=== PATIENT | female | born 1935 | race Caucasian/White ===

== ENCOUNTER 2019-05-20 20:16 | Inpatient (IN) ==
[2019-05-20] MEDS ORDERED: Levalbuterol Neb 1.25 MG/3 ML IH ONE (20:46)
[2019-05-20] MEDS ORDERED: predniSONE 20 MG TABLET PO ONE (20:47)
[2019-05-20 21:04] LABS: Basophils % 0.2 %; Eosinophils % 0.1 %; Hematocrit 34.4 % (35.3-44.9); Immature Granulocytes % 0.6 % (0-4); Lymphocytes # 1.6 K/mcL (0.6-4.6); Lymphocytes % 12.6 %; Mean Corpuscular HGB Conc 34.9 g/dL (31.6-35.5); Mean Corpuscular Hemoglobin 32.3 pg (28.0-33.3); Mean Corpuscular Volume 92.5 fL (83.0-100.0); Mean Platelet Volume 10.4 fL (9.4-12.4); Monocytes # 0.9 K/mcL (0.0-1.3); Monocytes % 7.1 %; Neutrophils # 9.8 K/mcL (1.6-8.9); Platelet Count 167 K/mcL (140-400); Red Blood Count 3.72 M/mcL (3.82-4.97); Segmented Neutrophils % 79.4 %; White Blood Count 12.3 K/mcL (4.3-11.1)
[2019-05-20 21:18] LABS: Albumin 3.7 g/dL (3.5-5.7); Albumin/Globulin Ratio 1.2 (1.1-2.2); Calcium 8.9 mg/dL (8.6-10.3); Globulin 3.2 g/dL (2.4-3.5); Potassium 3.5 mEq/L (3.5-5.1); Total Protein 6.9 g/dL (6.4-8.9)
--- NOTE | 2019-05-20 21:26 | Emergency Department Note ---
Disposition Clinical Impression: Multifocal pneumonia Respiratory failure with hypoxia Qualifiers: Chronicity: acute Qualified Code(s): J96.01 - Acute respiratory failure with hypoxia COPD (chronic obstructive pulmonary disease) Qualifiers: COPD type: unspecified COPD Qualified Code(s): J44.9 - Chronic obstructive pulmonary disease, unspecified Disposition: Admitted As Inpatient Condition: Fair Time of Disposition: 22:21 URI/Sore Throat HPI - General Chief Complaint: ED Shortness of Breath/Dyspnea Stated Complaint: sob Time Seen by Provider: 05/20/19 20:22 Source: patient Limitations: no limitations Nursing Notes Reviewed: Yes Vital Signs Reviewed: Yes - History of Present Illness HPI Narrative: 83-year-old female presents for evaluation of shortness of breath and cough. Patient states that symptoms for 3 days. She denies any chest pain. She no rmally does not require use of oxygen. She does use a nebulizer at home but does not know the name of the medicine that she uses. She is a one pack per day smoker - Related Data Home Medications Medication Instructions Recorded Confirmed Atorvastatin [Lipitor] 40 mg PO HS 12/10/16 05/20/19 Aspirin 325 mg PO DAILY 04/10/18 05/20/19 Metoprolol [Lopressor] 50 mg PO DAILY 04/10/18 05/20/19 Allergies Allergy/AdvReac Type Severity Reaction Status Date / Time heparin Allergy See Verified 05/20/19 20:36 Comments morphine Allergy See Verified 05/20/19 20:36 Comments rabeprazole [From Aciphex] Allergy See Verified 05/20/19 20:36 Comments Sulfa (Sulfonamide Allergy See Verified 05/20/19 20:36 Antibiotics) Comments Review of Systems: Constitutional: [Negative for fever and chills.] HENT: [Negative for congestion.] Eyes: [Negative for discharge.] Respiratory: See history of present illness Cardiovascular: [Negative for chest pain.] Gastrointestinal: [Negative for nausea, vomiting, abdominal pain and diarrhea.] Endocrine: [Negative for excessive thirst,urination] Genitourinary: [Negative for dysuria and frequency.] Musculoskeletal: [Negative for myalgias and arthralgias.] Skin: [Negative for rash.] Neurological: [Negative for dizziness, localized weakness and headaches.] Psychiatric/Behavioral: [Negative for nervous/anxious.] All other systems reviewed and are negative. URI PMH - Past Medical History Medical history: Reports: arthritis, COPD, coronary artery disease, diabetes, hyperlipidemia, hypertension, myocardial infarction Psychiatric history: Reports: no psych history BANDOLEER PACKER history: Reports: no BANDOLEER PACKER history - Social History Smoking Status: Current every day smoker Alcohol use: Reports: none Drug use: Reports: none Physical Exam Constitutional: Patient is [alert], [healthy,and comfortable] and cooperative. HENT: Head: Normocephalic and atraumatic. Right Ear: External ear normal. Left Ear: External ear normal. Nose: Nose normal. Mouth/Throat: Oropharynx is clear and mucous membranes show [good hydration.] Eyes: Conjunctivae and EOM are normal. Pupils are equal, round, and reactive to light. Right eye exhibits [no] discharge. Left eye exhibits [no] discharge. Neck: Trachea is midline, normal range of motion and [phonation normal]. Neck supple. Cardiovascular: [Regular rhythm], S1 normal, S2 normal, normal heart sounds and intact distal pulses. Exam reveals no gallop and no friction rub. No murmur heard. [Capillary refill is brisk.] [Peripheral pulses are 2+] Pulmonary/Chest: Effort [normal] No stridor. [No] tachypnea. [No] respiratory distress. There are decreased breath sounds. A few faint wheezes and diffuse rhonchi. No rales. Abdominal: Soft. [Bowel sounds are normal]. There exhibits [no] distension and [no] mass. There is no hepatosplenomegaly. There is [no tenderness], [no] CVA tenderness. There is [no rigidity, no rebound, no guarding]. Musculoskeletal: Normal range of motion of uninvolved extremities. There exhibits [no edema]. [ ] Neurological: Patient is alert. Patient displays no atrophy and no tremor. Moves all 4 extremities equally without gross deficit. No cranial nerve deficit and exhibits normal muscle tone. Coordination normal grossly. Skin: Skin is warm and dry. No erythema. No rash noted. Psychiatric: Patient has a [normal mood and affect.] Course Course Narrative: [ ] Discussed diagnosis and further treatment plans with patient and son. Questions addressed. Patient was discussed with Dr. Lainez on-call and we will admit her for further management treatment related to hypoxia at rest Vital Signs Temperature 101.9 F H 05/20/19 20:37 Pulse Rate 110 05/20/19 20:37 Respiratory Rate 20 05/20/19 20:37 Blood Pressure 134/70 05/20/19 20:37 O2 Sat by Pulse Oximetry 94 05/20/19 20:37 Temperature 101.9 F H 05/20/19 20:37 Pulse Rate 91 05/20/19 22:57 Respiratory Rate 20 05/20/19 22:57 Blood Pressure 152/57 05/20/19 22:57 O2 Sat by Pulse Oximetry 93 05/20/19 22:57 Oxygen Delivery Oxygen Delivery Nasal Cannula Upper Respiratory Infection - MDM Narrative Medical decision making narrative: Initial differential diagnosis would include INFLUENZA, UPPER RESPIRATORY INFECTION, PHARYNIGITIS, BRONCHITIS,TONSILLITIS, MASTOIDITIS, PNEUMONIA, PERITONSILLAR ABSCESS, CROUP, EPIGLOTTITIS. - Lab Data Lab results reviewed: Yes I reviewed the patient's lab results. Result diagrams: 05/20/19 20:25 05/20/19 20:25 Lab Results 05/20/19 05/20/19 Range/Units 20:25 20:25 WBC 12.3 H (4.3-11.1) K/mcL RBC 3.72 L (3.82-4.97) M/mcL Hgb 12.0 (11.5-15.4) g/dL Hct 34.4 L (35.3-44.9) % MCV 92.5 (83.0-100.0) fL MCH 32.3 (28.0-33.3) pg MCHC 34.9 (31.6-35.5) g/dL RDW 12.0 (11.5-14.5) % Plt Count 167 (140-400) K/mcL MPV 10.4 (9.4-12.4) fL Immature Gran % 0.6 (0-4) % Seg Neutrophils % 79.4 % Lymphocytes % 12.6 % Monocytes % 7.1 % Eosinophils % 0.1 % Basophils % 0.2 % Neutrophils # 9.8 H (1.6-8.9) K/mcL Lymphocytes # 1.6 (0.6-4.6) K/mcL Monocytes # 0.9 (0.0-1.3) K/mcL Eosinophils # 0.0 (0.0-0.6) K/mcL Basophils # 0.0 (0.0-0.2) K/mcL Sodium 134 L (136-145) mEq/L Potassium 3.5 (3.5-5.1) mEq/L Chloride 98 (98-107) mEq/L Carbon Dioxide 27 (23-29) mEq/L BUN 15 (8-23) mg/dL Creatinine 1.23 H (0.60-1.20) mg/dL Est GFR ( Amer) 51 L (> 60) Est GFR (Non-Af Amer) 42 L (> 60) BUN/Creatinine Ratio 12 (6-26) Glucose 211 H (70-105) mg/dL Calculated Osmolality 285 (280-300) Calcium 8.9 (8.6-10.3) mg/dL Total Bilirubin 1.0 (0.3-1.0) mg/dL AST 12 L (13-39) Units/L ALT 10 (7-52) Units/L Alkaline Phosphatase 72 (34-104) Units/L Serum Total Protein 6.9 (6.4-8.9) g/dL Albumin 3.7 (3.5-5.7) g/dL Globulin 3.2 (2.4-3.5) g/dL Albumin/Globulin Ratio 1.2 (1.1-2.2) - Radiology Data Radiology results reviewed: Yes I reviewed the patient's radiology results. CT/CT chest wo con IMPRESSION: 1. Multifocal patchy airspace opacification seen in the periphery of both lungs without nodular changes or cavitation. Findings suggest a multifocal infectious process. These opacifications were not present on previous chest CT done 05/06/2018 2. Atherosclerotic changes XR/XR chest 2V IMPRESSION: Multifocal areas of consolidation, some with possible cavitation. Further evaluation with chest CT is recommended. - EKG Data EKG attestation: Yes I reviewed and interpreted this EKG. EKG shows normal: sinus rhythm, axis, intervals, QRS complexes, ST-T waves Rate: tachycardia Interpretation: no acute changes
[2019-05-20] MEDS: 0.9 % Sodium Chloride 1,000 ML IVC SCH (23:48)
[2019-05-20] MEDS: Azithromycin 500 MG in D5% in Water 250 ML IVPB SCH (23:48)
[2019-05-21] MEDS ORDERED: methylPREDNISolone 125 MG/2 ML VIAL IM SCH
[2019-05-21] MEDS: *HR* Enoxaparin 30 MG/0.3 ML SYRINGE SQ SCH (05:17)
[2019-05-21] MEDS: Ipratropium/Albuterol Neb 3 ML IH SCH ×3 (05:17→18:36)
[2019-05-21] MEDS: MethylPREDNISolone 40 MG/ML VIAL IVP SCH ×2 (09:37→15:56)
[2019-05-21] MEDS: Aspirin 325 MG TABLET PO SCH (09:37)
--- NOTE | 2019-05-21 09:54 | Internal Med History&Physical ---
Date of Encounter: 05/21/19 Time of Encounter: 09:52 Assessment and Plan (1) Multifocal pneumonia Current visit: Yes Status: Acute Continue IV antibiotics. Monitor. Repeat CBC in am (2) CAD (coronary artery disease) Current visit: Yes Status: Chronic Denies chest pain. Continue current medication. Monitor. Qualifiers: Coronary Disease-Associated Artery/Lesion type: unspecified vessel or lesion type [place] vs. transplanted heart: unspecified whether [place] or transplanted heart Associated angina: without angina Qualified Code(s): I25.10 - Atherosclerotic heart disease of [place] coronary artery without angina pectoris (3) COPD (chronic obstructive pulmonary disease) Current visit: Yes Status: Acute continue steroids. monitor. Qualifiers: COPD type: unspecified COPD Qualified Code(s): J44.9 - Chronic obstructive pulmonary disease, unspecified (4) Hypertension Current visit: Yes Status: Acute Controlled with current medication. Monitor blood pressure. Qualifiers: Hypertension type: essential hypertension Qualified Code(s): I10 - Essential (primary) hypertension Internal Medicine - H&P: HPI Admitted From: Emergency Dept Plans for Post Hospital Care: Home History of present illness: Ms. Lucio is a 83 year old female admitted for pneumonia after presenting from home to the emergency room. Patient states she has had shortness of breath and productive cough with greenish sputum for the past 3 days. Denies fever, chills, nausea vomiting or diarrhea. Denies chest pain. Has had decreased appetite and states she is not been drinking as much fluid as she should. Bowels are moving normal. Urinating as normal. Smokes 1 pack per day. Lives at home alone. Past medical history includes arthritis, COPD, CAD, hyperlipidemia, hypertension, [place], does not wear oxygen at home. Independent with ADLs. Past Med Surg Social Fam HX - Past Medical History Medical history: arthritis, COPD, coronary artery disease, diabetes, hyperlipidemia, hypertension, myocardial infarction Psychiatric history: no psych history - Past Surgical History Additional surgical history: stent placed - Social History Smoking Status: Current every day smoker Smokeless Tobacco Status: No Alcohol use: none Drug use: none - Family History Son Adopted: Devol: zoe bustamante Age: 60 Family Member Ethnicity: Non- Living Status: Still Living Hx Family Cardiac Disorders: No Hx Family Respiratory Disorders: No Hx Family Cancer: No Hx Family GI Disorders: No Hx Family Genitourinary Disorders: No Hx Family Endocrine Disorder: No Hx Family Musculoskeletal Disorders: No Hx Family Neuromuscular Disorders: No Hx Family Neurologic Disorders: No Hx Family HEENT Disorders: No Hx Family Autoimmune Disorders: No Hx Family Reproductive Disorders: No Hx Family Psychosocial Disorders: No Hx Family Medical Disorders: No Internal Medicine - H&P: Meds Atorvastatin [Lipitor] 40 mg PO HS 12/10/16 [History] Aspirin 325 mg PO DAILY 04/10/18 [History] Metoprolol [Lopressor] 50 mg PO DAILY 04/10/18 [History] Allergy/AdvReac Type Severity Reaction Status Date / Time heparin Allergy See Verified 05/20/19 20:36 Comments morphine Allergy See Verified 05/20/19 20:36 Comments rabeprazole [From Aciphex] Allergy See Verified 05/20/19 20:36 Comments Sulfa (Sulfonamide Allergy See Verified 05/20/19 20:36 Antibiotics) Comments All Systems PM: A 10-system review of systems was performed and is negative for pertinent findings except as documented above in the HPI. - Constitutional Constitutional: no chills, no fever(s), no night sweats - EENT Eyes: no change in vision, no discharge, no pain, no photophobia Ears: no ear discharge, no ear pain, no tinnitus Nose, mouth and throat: no dysphagia, no nasal discharge, no neck pain, no sore throat - Cardiovascular Cardiovascular ROS IM: no chest pain, no diaphoresis, no dyspnea, no lightheadedness, no palpitations, no syncope - Respiratory Respiratory: cough, no dyspnea, no wheezing, no excessive phlegm production - Gastrointestinal Gastrointestinal: no abdominal pain, no diarrhea, no hematemesis, no hematochezia, no melena, no nausea, no vomiting - Genitourinary Genitourinary: no change in urinary stream, no dysuria, no flank pain, no hematuria - Musculoskeletal Musculoskeletal ROS IM: no numbness, no tingling - Integumentary Integumentary IM: no rash, no unusual bruising - Neurological Neurological ROS: no confusion, no convulsions, no focal weakness, no numbness, no tingling, no tremor(s) - Hematologic/Lymphatic Hematologic/Lymphatic: no easy bruising - Constitutional Vitals: Temp Pulse Resp BP Pulse Ox 98.7 F 93 16 107/58 93 05/21/19 07:41 05/21/19 07:41 05/21/19 07:41 05/21/19 07:41 05/21/19 07:41 General appearance: Present: cooperative, A&O X 3, pleasant, no acute distress, answers questions appropriately - Head Head exam: Present: atraumatic, normocephalic - Eye Eye exam: Present: PERRL, conjuntiva pink, sclera anicteric Pupils: Present: PERRL - Neck Neck exam general surgery: Present: supple, trachea midline. Absent: lymphadenopathy - Respiratory Respiratory exam: Present: CTAB. Absent: accessory muscle use, rales, rhonchi, wheezes Additional comments: Diminished and bilateral basis - Cardiovascular Cardiovascular exam: Present: RRR, +S1, +S2. Absent: diastolic murmur, gallop, rubs, systolic murmur - GI/Abdominal GI/Abdominal exam: Present: normal bowel sounds, soft, no peritoneal signs. Absent: distended, tenderness - Extremities Exam Extremities exam: Present: warm, radial pulses palpable and symmetrical. Absent: calf tenderness, cyanotic, pedal edema - Neurological Exam Neurological exam: Present: CN II-XII intact, oriented X3, no focal deficits. Absent: pronater drift, facial droop, speech deficit - Skin Skin exam: Present: dry, intact Internal Med - H&P Results - Labs CBC & Chem 7: 05/20/19 20:25 05/20/19 20:25 Labs: Short CBC 05/20/19 Range/Units 20:25 WBC 12.3 H (4.3-11.1) K/mcL Hgb 12.0 (11.5-15.4) g/dL Hct 34.4 L (35.3-44.9) % Plt Count 167 (140-400) K/mcL Neutrophils # 9.8 H (1.6-8.9) K/mcL BMP 05/20/19 20:25 Sodium 134 L Potassium 3.5 Chloride 98 Carbon Dioxide 27 BUN 15 Creatinine 1.23 H Glucose 211 H Calcium 8.9 Liver Function 05/20/19 Range/Units 20:25 Total Bilirubin 1.0 (0.3-1.0) mg/dL AST 12 L (13-39) Units/L ALT 10 (7-52) Units/L Alkaline Phosphatase 72 (34-104) Units/L Albumin 3.7 (3.5-5.7) g/dL - Impressions ITS Impressions Chest X-Ray 05/20/19 20:47 IMPRESSION: Multifocal areas of consolidation, some with possible cavitation. Further evaluation with chest CT is recommended. D/ / Benny Baxter MD / Benny Baxter MD Interpreting Provider: Benny Baxter MD Chest CT 05/20/19 21:23 IMPRESSION: 1. Multifocal patchy airspace opacification seen in the periphery of both lungs without nodular changes or cavitation. Findings suggest a multifocal infectious process. These opacifications were not present on previous chest CT done 05/06/2018 2. Atherosclerotic changes D/ / Darrin Root MD / Darrin Root MD Interpreting Provider: Darrin Root MD
[2019-05-21] MEDS ORDERED: Albuterol 2.5 MG/3 ML NEBULIZER IH ONE (10:00)
[2019-05-21] MEDS: 0.9 % Sodium Chloride 1,000 ML IVC SCH (15:55)
[2019-05-22] MEDS: MethylPREDNISolone 40 MG/ML VIAL IVP SCH ×2 (00:42→08:14)
[2019-05-22] MEDS: Ipratropium/Albuterol Neb 3 ML IH SCH ×4 (00:42→18:13)
[2019-05-22 05:31] LABS: Basophils % 0.1 %; Hematocrit 30.2 % (35.3-44.9); Hemoglobin 10.4 g/dL (11.5-15.4); Immature Granulocytes % 0.8 % (0-4); Lymphocytes # 0.7 K/mcL (0.6-4.6); Lymphocytes % 6.3 %; Mean Corpuscular HGB Conc 34.4 g/dL (31.6-35.5); Mean Corpuscular Hemoglobin 31.7 pg (28.0-33.3); Mean Corpuscular Volume 92.1 fL (83.0-100.0); Mean Platelet Volume 10.3 fL (9.4-12.4); Monocytes # 0.4 K/mcL (0.0-1.3); Monocytes % 3.5 %; Neutrophils # 10.1 K/mcL (1.6-8.9); Platelet Count 180 K/mcL (140-400); Red Blood Count 3.28 M/mcL (3.82-4.97); Red Cell Distribution Width 11.9 % (11.5-14.5); Segmented Neutrophils % 89.3 %; White Blood Count 11.3 K/mcL (4.3-11.1)
[2019-05-22 05:47] LABS: Calcium 8.4 mg/dL (8.6-10.3); Potassium 3.6 mEq/L (3.5-5.1)
[2019-05-22] MEDS: *HR* Enoxaparin 30 MG/0.3 ML SYRINGE SQ SCH (06:21)
[2019-05-22] MEDS: Azithromycin 500 MG in D5% in Water 250 ML IVPB SCH (08:14)
[2019-05-22] MEDS: Aspirin 325 MG TABLET PO SCH (08:14)
[2019-05-22] MEDS: Nicotine 21 MG PATCH.TD24 TD SCH (12:00)
[2019-05-22 15:26] LABS: Bilirubin,Urine Negative (Negative); Blood,Urine Trace-intact (Negative); Clarity,Urine Clear (Clear); Color,Urine Yellow (Yellow); Glucose,Urine (UA) 100 mg/dL (Normal); Ketones,Urine Negative (Negative); Leukocyte Esterase,Urine Small (Negative); Nitrite,Urine Negative (Negative); PH,Urine 6.5 pH Units (5.0-8.0); Protein,Urine 30 mg/dL (Neg-Trace); Specific Gravity,Urine 1.015 (1.010-1.025); Urobilinogen,Urine Normal (Normal)
[2019-05-22 15:55] LABS: Bacteria,Urine Few per hpf (None-Few); RBC,Urine 0-3 per hpf (0-3); WBC,Urine 0-3 per hpf (0-3)
--- NOTE | 2019-05-22 16:27 | Internal Med Progress Note ---
Date of Encounter: 05/22/19 Time of Encounter: 15:45 - Assessment and plan (1) Multifocal pneumonia Current Visit: Yes Status: Acute Assessment and plan: presentation of atypical pneumonia will change zithromax to levaquin even though some reponse she has gi upset from it add guafenasin continue duoneb stop steroid as makes her agiated - Subjective Interval history: Assessment and Plan (1) Multifocal pneumonia Current visit: Yes Status: Acute symptoms consist with atypical; pneumonia gradual onset started with sinus sx poor appetite sick contact ( young great grand dtr Angely that she is raising ) Zithromax seems helpful for respiratory sx but is cause her significant nausea gas and diarrhea she want to change antibiotic will start levaquin will add quafenasin continue duoneb steroid helped her sob but she has had agitation and insomnia with steroid says that has happened before will stop steroid discussed with her son chloe and grand dtr lori agree with plan of care Monitor. Repeat bmp CBC in am (2) CAD (coronary artery disease) Current visit: Yes Status: Chronic no recent problems Denies chest pain. Continue current medication. Monitor. Qualifiers: Coronary Disease-Associated Artery/Lesion type: unspecified vessel or lesion type [place] vs. transplanted heart: unspecified whether [place] or transplanted heart Associated angina: without angina Qualified Code(s): I25.10 - Athe rosclerotic heart disease of [place] coronary artery without angina pectoris (3) COPD (chronic obstructive pulmonary disease) Current visit: Yes Status: Acute continue steroids. monitor. pt has occasional smoking advied to stop wlll add nicotine patch she has not had home oxygen but does have home NEB machine Qualifiers: COPD type: unspecified COPD Qualified Code(s): J44.9 - Chronic obstructive pulmonary disease, unspecified (4) Hypertension Current visit: Yes Status: Acute Controlled with current medication. Monitor blood pressure. Qualifiers: Hypertension type: essential hypertension Qualified Code(s): I10 - Essential (primary) hypertension Internal HX Ms. Lucio is a 83 year old female admitted for pneumonia after presenting from home to the emergency room. Patient states she has had shortness of breath and productive cough with greenish sputum for the past 5 days. started after her great grand dtr angely came home with runny nose and cough. Pt states she has no appetite. Pt says zithromax was helfpful but caused gi distress. steroid kept her up all night . had diarrhea today . She denies hx of allergy to levaquin . Urinating as normal. Smokes 1 pack per day. Lives at home alone. family supportive Past medical history includes arthritis, COPD, CAD She reports a few months ago she had shingles left shoulder arm area now has some post herpetic neuralgia EXAM GEN WF thin oriented x 3 alert talkative sitting up in chair HEENT dry oral mucosa no rash some septal dev - Cardiovascular Cardiovascular s 1 s2 no m - Respiratory Respiratory: clear bilat soft end insp wheeze bilat - Gastrointestinal Gastrointestinal: abd soft nt no rebound mild distention bs [resent -ext moves well bilateral can wt bear but gait not tested pulses palp symetric Neuro no gross def some [place] - Integumentary Integumentary IM: no rash - Constitutional Vitals: Temp Pulse Resp BP Pulse Ox 98.9 F 81 16 133/61 93 05/22/19 15:24 05/22/19 15:24 05/22/19 15:24 05/22/19 15:24 05/22/19 15:24 General appearance: Present: cooperative, A&O X 3, pleasant, no acute distress, answers questions appropriately Internal Medicine: Result - Labs CBC & Chem 7: 05/22/19 04:59 05/22/19 04:59 Labs: Short CBC 05/22/19 Range/Units 04:59 WBC 11.3 H (4.3-11.1) K/mcL Hgb 10.4 L D (11.5-15.4) g/dL Hct 30.2 L (35.3-44.9) % Plt Count 180 (140-400) K/mcL Neutrophils # 10.1 H (1.6-8.9) K/mcL BMP 05/22/19 04:59 Sodium 135 L Potassium 3.6 Chloride 103 Carbon Dioxide 24 BUN 28 H Creatinine 1.37 H Glucose 356 H Calcium 8.4 L Urine 05/22/19 Range/Units 15:19 Urine Color Yellow (Yellow) Urine Clarity Clear (Clear) Urine pH 6.5 (5.0-8.0) pH Units Ur Specific [place] 1.015 (1.010-1.025) Urine Protein 30 H (Neg-Trace) mg/dL Urine Glucose (UA) 100 H (Normal) mg/dL Consult Discharge Plan - Plan Referrals: Izaiah,Iron W, NELIA [Primary Care Provider] -
[2019-05-22] MEDS: GuaiFENesin Liq 200 MG/10 ML UDC PO PRN (20:31)
[2019-05-22] MEDS: Melatonin 3 MG TABLET PO PRN (20:32)
[2019-05-23] MEDS: Ipratropium/Albuterol Neb 3 ML IH SCH ×4 (00:45→20:44)
[2019-05-23] MEDS ORDERED: Haloperidol Lactate 5 MG/ML VIAL IM ONE (01:57)
[2019-05-23] MEDS ORDERED: Haloperidol Lactate 5 MG/ML VIAL ONE (01:59)
[2019-05-23] MEDS ORDERED: Isovue-370 500 ML BOTTLE IVP ONE (08:39)
[2019-05-23] MEDS ORDERED: levoFLOXacin 250 MG TABLET PO SCH (09:00)
[2019-05-23] MEDS ORDERED: levoFLOXacin 500 MG TABLET PO ONE (09:00)
[2019-05-23 09:37] LABS: Basophils % 0.1 %; Eosinophils % 0.1 %; Hemoglobin 10.4 g/dL (11.5-15.4); Immature Granulocytes % 2.3 % (0-4); Mean Corpuscular HGB Conc 34.7 g/dL (31.6-35.5); Mean Corpuscular Hemoglobin 31.8 pg (28.0-33.3); Mean Corpuscular Volume 91.7 fL (83.0-100.0); Mean Platelet Volume 9.9 fL (9.4-12.4); Monocytes # 0.7 K/mcL (0.0-1.3); Monocytes % 5.4 %; Platelet Count 194 K/mcL (140-400); Red Blood Count 3.27 M/mcL (3.82-4.97); Red Cell Distribution Width 11.9 % (11.5-14.5); Segmented Neutrophils % 77.1 %; White Blood Count 13.4 K/mcL (4.3-11.1)
[2019-05-23] MEDS: *HR* Enoxaparin 30 MG/0.3 ML SYRINGE SQ SCH (09:39)
[2019-05-23] MEDS: Nicotine 21 MG PATCH.TD24 TD SCH (09:40)
[2019-05-23] MEDS: Aspirin 325 MG TABLET PO SCH (09:40)
[2019-05-23 09:54] LABS: Albumin 3.3 g/dL (3.5-5.7); Albumin/Globulin Ratio 1.2 (1.1-2.2); Bilirubin,Total 0.4 mg/dL (0.3-1.0); Calcium 8.8 mg/dL (8.6-10.3); Globulin 2.7 g/dL (2.4-3.5); Potassium 3.2 mEq/L (3.5-5.1)
[2019-05-23 10:00] LABS: Neutrophils # 10.3 K/mcL (1.6-8.9)
[2019-05-23 10:27] LABS: Thyroid Stimulating Hormone 1.889 mcIU/mL (0.340-5.600)
[2019-05-23] MEDS ORDERED: Haloperidol Lactate 5 MG/ML VIAL IM PRN (17:01)
--- NOTE | 2019-05-23 17:15 | Internal Med Progress Note ---
Date of Encounter: 05/23/19 Time of Encounter: 14:30 - Assessment and plan (1) Multifocal pneumonia Current Visit: Yes Status: Acute - Subjective Interval history: Assessment and Plan (1) Multifocal pneumonia Current visit: Yes Status: Acute symptoms consist with atypical; pneumonia gradual onset started with sinus sx poor appetite sick contact ( young great grand dtr Angely that she is raising ) Zithromax seems helpful for respiratory sx but is cause her significant nausea gas and diarrhea she want to change antibiotic will change to po Doxycycline will add quafenasin continue duoneb steroid helped her sob but she has had agitation and insomnia with steroid says that has happened before will stop steroid discussed with her son chloe and grand dtr lori agree with plan of care Monitor. Repeat bmp CBC in am discussed pt clinical [pattern of behavior, dreams, hallucination, and paranoia with rage that is not like her and is worse at night severe lst nite ct head ok metabolic work up neg no clear case for delerium has been off steroid has had off and on about a year previous antidepress not help she says pt mother had dementia severe pt possible LEWEY BODY DEMENTIA clinical symptoms described to pt and family agree to start donepezil and low dose clonipin pt will need fllow up as out pt with geriatric psych pt also reported today small mass R neck under jaw angle say biopsied 3 yr ago and ok pt say smaller now will get ct soft tissue neck (2) CAD (coronary artery disease) Current visit: Yes Status: Chronic no recent problems Denies chest pain. Continue current medication. Monitor. Qualifiers: Coronary Disease-Associated Artery/Lesion type: unspecified vessel or lesion type [place] vs. transplanted heart: unspecified whether [place] or transplanted heart Associated angina: without angina Qualified Code(s): I25.10 - Atherosclerotic heart disease of [place] coronary artery without angina pectoris (3) COPD (chronic obstructive pulmonary disease) Current visit: Yes Status: Acute continue steroids. monitor. pt has occasional smoking advied to stop wlll add nicotine patch she has not had home oxygen but does have home NEB machine Qualifiers: COPD type: unspecified COPD Qualified Code(s): J44.9 - Chronic obstructive pulmonary disease, unspecified (4) Hypertension Current visit: Yes Status: Acute Controlled with current medication. Monitor blood pressure. Qualifiers: Hypertension type: essential hypertension Qualified Code(s): I10 - Essential (primary) hypertension Internal HX Ms. Lucio is a 83 year old female admitted for pneumonia after presenting from home to the emergency room. Patient states she has had shortness of breath and productive cough with greenish sputum for the past 5 days. started after her great grand dtr angely came home with runny nose and cough. Pt states she has no appetite. Pt says zithromax was helfpful but caused gi distress. steroid kept her up all night . had diarrhea today . She denies hx of allergy to levaquin . Urinating as normal. Smokes 1 pack per day. Lives at home alone. family supportive Past medical history includes arthritis, COPD, CAD She reports a few months ago she had shingles left shoulder arm area now has some post herpetic neuralgia EXAM GEN WF thin oriented x 3 alert talkative sitting up in chair HEENT dry oral mucosa no rash some septal dev - Cardiovascular Cardiovascular s 1 s2 no m - Respiratory Respiratory: clear bilat soft end insp wheeze bilat - Gastrointestinal Gastrointestinal: abd soft nt no rebound mild distention bs [resent -ext moves well bilateral can wt bear but gait not tested pulses palp symetric Neuro no gross def some [place] - Integumentary Integumentary IM: no rash - Constitutional Vitals: Temp Pulse Resp BP Pulse Ox 98.2 F 86 17 172/70 92 05/23/19 16:43 05/23/19 16:43 05/23/19 16:43 05/23/19 16:43 05/23/19 16:43 General appearance: Present: cooperative, A&O X 3, pleasant, no acute distress, answers questions appropriately Internal Medicine: Result - Labs CBC & Chem 7: 05/23/19 09:00 05/23/19 09:00 Labs: Short CBC 05/23/19 Range/Units 09:00 WBC 13.4 H (4.3-11.1) K/mcL Hgb 10.4 L (11.5-15.4) g/dL Hct 30.0 L (35.3-44.9) % Plt Count 194 (140-400) K/mcL Neutrophils # 10.3 H (1.6-8.9) K/mcL BMP 05/23/19 09:00 Sodium 140 Potassium 3.2 L Chloride 105 Carbon Dioxide 30 H BUN 29 H Creatinine 1.16 Glucose 176 H Calcium 8.8 Liver Function 07/07/19 Range/Units 09:00 Total Bilirubin 0.4 (0.3-1.0) mg/dL AST 18 (13-39) Units/L ALT 14 (7-52) Units/L Alkaline Phosphatase 60 (34-104) Units/L Albumin 3.3 L (3.5-5.7) g/dL - Impressions Impressions Head CT 05/23/19 08:39 IMPRESSION: No evidence of acute intracranial abnormality. D/ / 05/23/2019 11:14:21 Scott Hughes MD / altagracia Interpreting Provider: Scott Hughes MD Consult Discharge Plan - Plan Referrals: Iron Bliss CNP [Primary Care Provider] -
[2019-05-23] MEDS: clonazePAM 1 MG TABLET PO SCH (17:16)
[2019-05-23] MEDS: GuaiFENesin Liq 200 MG/10 ML UDC PO PRN (20:53)
[2019-05-23] MEDS: Melatonin 3 MG TABLET PO PRN (20:53)
[2019-05-23] MEDS: Nystatin SUSP 5 ML UD.LIQ PO SCH (20:54)
[2019-05-24] MEDS: Ipratropium/Albuterol Neb 3 ML IH SCH ×3 (03:50→15:26)
[2019-05-24 06:12] LABS: Basophils % 0.2 %; Eosinophils % 0.3 %; Hematocrit 29.3 % (35.3-44.9); Hemoglobin 10.1 g/dL (11.5-15.4); Lymphocytes # 1.9 K/mcL (0.6-4.6); Lymphocytes % 16.3 %; Mean Corpuscular HGB Conc 34.5 g/dL (31.6-35.5); Mean Corpuscular Volume 92.7 fL (83.0-100.0); Mean Platelet Volume 9.7 fL (9.4-12.4); Monocytes # 0.7 K/mcL (0.0-1.3); Monocytes % 5.8 %; Neutrophils # 8.7 K/mcL (1.6-8.9); Platelet Count 181 K/mcL (140-400); Red Blood Count 3.16 M/mcL (3.82-4.97); Segmented Neutrophils % 75.4 %; White Blood Count 11.5 K/mcL (4.3-11.1)
[2019-05-24 06:31] LABS: Calcium 8.4 mg/dL (8.6-10.3); Potassium 3.6 mEq/L (3.5-5.1)
[2019-05-24] MEDS ORDERED: Doxycycline 100 MG CAPSULE PO SCH (09:00)
[2019-05-24] MEDS ORDERED: levoFLOXacin 250 MG TABLET PO SCH (09:00)
[2019-05-24] MEDS: Aspirin 325 MG TABLET PO SCH (09:13)
[2019-05-24] MEDS: clonazePAM 1 MG TABLET PO SCH (09:13)
[2019-05-24] MEDS: *HR* Enoxaparin 30 MG/0.3 ML SYRINGE SQ SCH (09:14)
[2019-05-24] MEDS: Nystatin SUSP 5 ML UD.LIQ PO SCH ×2 (09:14→13:08)
[2019-05-24] MEDS: Nicotine 21 MG PATCH.TD24 TD SCH ×2 (09:14→09:22)
--- NOTE | 2019-05-24 10:17 | Internal Med Progress Note ---
Date of Encounter: 05/24/19 Time of Encounter: 10:15 - Assessment and plan (1) Multifocal pneumonia Current Visit: Yes Status: Acute Assessment and plan: Improving. White blood cell count 11.5 today. Continue oxygen per nasal c annula. Will try to wean. Continue doxycycline. (2) CAD (coronary artery disease) Current Visit: Yes Status: Chronic Assessment and plan: Denies chest pain. Continue current medication. Qualifiers: Coronary Disease-Associated Artery/Lesion type: unspecified vessel or lesion type [place] vs. transplanted heart: unspecified whether [place] or transplanted heart Associated angina: without angina Qualified Code(s): I25.10 - Atherosclerotic heart disease of [place] coronary artery without angina pectoris (3) COPD (chronic obstructive pulmonary disease) Current Visit: Yes Status: Acute Assessment and plan: Continue inhaled meds. Stable. Steroids discontinued due to increased agitation confusion Qualifiers: COPD type: unspecified COPD Qualified Code(s): J44.9 - Chronic obstructive pulmonary disease, unspecified (4) Hypertension Current Visit: Yes Status: Acute Assessment and plan: Controlled with current medication. Monitor blood pressure. Qualifiers: Hypertension type: essential hypertension Qualified Code(s): I10 - Essential (primary) hypertension - Time Spent With Patient less than 15 minutes - Subjective Interval history: Currently resting in bed. On doxycycline PO for pneumonia. States she is fe eling weak and tired. Denies shortness of breath, chest pain, fever, chills, nausea vomiting or diarrhea. Maintaining O2 sats rater than 94% at 2 L oxygen per nasal cannula. White blood cells count improving at 11.5. Maintaining appetite and hydration. - Constitutional Vitals: Temp Pulse Resp BP Pulse Ox 97.9 F 92 18 168/79 90 05/24/19 06:54 05/24/19 06:54 05/24/19 08:55 05/24/19 06:54 05/24/19 10:06 General appearance: Present: cooperative, A&O X 3, pleasant, no acute distress, answers questions appropriately - Head Head exam: Present: atraumatic, normocephalic - Eye Eye exam: Present: PERRL, conjuntiva pink, sclera anicteric Pupils: Present: PERRL - Neck Neck exam general surgery: Present: supple, trachea midline. Absent: lymphadenopathy - Respiratory Respiratory exam: Present: CTAB. Absent: accessory muscle use, rales, rhonchi, wheezes Additional comments: Diminished bilateral bases - Cardiovascular Cardiovascular exam: Present: RRR, +S1, +S2. Absent: diastolic murmur, gallop, rubs, systolic murmur - GI/Abdominal GI/Abdominal exam: Present: normal bowel sounds, soft, no peritoneal signs. Absent: distended, tenderness - Extremities Exam Extremities exam: Present: warm, radial pulses palpable and symmetrical. Absent: calf tenderness, cyanotic, pedal edema - Neurological Exam Neurological exam: Present: CN II-XII intact, oriented X3, no focal deficits. Absent: pronater drift, facial droop, speech deficit - Skin Skin exam: Present: dry, intact Internal Medicine: Result - Labs CBC & Chem 7: 05/24/19 05:55 05/24/19 05:55 Labs: Short CBC 05/24/19 Range/Units 05:55 WBC 11.5 H (4.3-11.1) K/mcL Hgb 10.1 L (11.5-15.4) g/dL Hct 29.3 L (35.3-44.9) % Plt Count 181 (140-400) K/mcL Neutrophils # 8.7 (1.6-8.9) K/mcL BMP 05/24/19 05:55 Sodium 139 Potassium 3.6 Chloride 105 Carbon Dioxide 30 H BUN 21 Creatinine 1.10 Glucose 232 H Calcium 8.4 L - Impressions Impressions Head CT 05/23/19 08:39 IMPRESSION: No evidence of acute intracranial abnormality. D/ / 05/23/2019 11:14:21 Scott Hughes MD / [facility] Interpreting Provider: Scott Hughes MD Soft Tissue Neck CT 05/24/19 06:00 IMPRESSION: Lobulated soft tissue mass in the posterior inferior aspect of the superficial lobe of the right parotid gland measuring 1.8 x 2.0 x 2.9 cm, corresponding to the palpable complaint, mildly decreased in size since February 21, 2017, and increased in size since March 01, 2016, hypermetabolic on PET-CT April 30, 2017. This finding is nonspecific, could be related to benign or malignant etiologies. Follow-up is recommended. 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 Patchy airspace opacities at the lung apices, may be related to infection/inflammation. No evidence of cervical lymphadenopathy. D/ / Vipin Aj MD / Vipin Aj MD Interpreting Provider: Vipin Aj MD Consult Discharge Plan - Plan Referrals: Iron Bliss, FREIGHT FLAGMAN [Primary Care Provider] -
--- NOTE | 2019-05-24 11:34 | Discharge Summary ---
- NOTES TO OUTPATIENT PROVIDER Notes to Outpatient Provider: Follow up with PCP within one week. Evaluate cognition. Orders not resulted at time of discharge: Pending orders 05/20/19 20:25 Culture,Blood [BC] Stat 05/23/19 18:15 EV carotid duplex imaging BI Routine Date of Encounter: 05/24/19 Time of Encounter: 11:29 - Discharge Diagnosis (1) Multifocal pneumonia Priority: Primary Status: Acute Comments: Continue PO doxycycline. Improving. Follow up with PCP within one week. (2) CAD (coronary artery disease) Priority: Secondary Status: Chronic Comments: Denies chest pain. Continue current medication. Follow up with PCP. Qualifiers: Coronary Disease-Associated Artery/Lesion type: unspecified vessel or lesion type [place] vs. transplanted heart: unspecified whether [place] or transplanted heart Associated angina: without angina Qualified Code(s): I25.10 - Atherosclerotic heart disease of [place] coronary artery without angina pectoris (3) COPD (chronic obstructive pulmonary disease) Priority: Secondary Status: Chronic Comments: Controlled with inhaled meds. Follow up with PCP. O2 sat 90% on room air Qualifiers: COPD type: unspecified COPD Qualified Code(s): J44.9 - Chronic obstructive pulmonary disease, unspecified (4) Hypertension Priority: Secondary Status: Chronic Comments: Controlled with current medication. Monitor blood pressure. Qualifiers: Hypertension type: essential hypertension Qualified Code(s): I10 - Essential (primary) hypertension Hospital course: Ms. Lucio is a 83 year old female discharging to home. Was inpatient for pneumonia. Will continue doxycycline PO for 7 more days. Follow up with PCP within one week. Discussion with son was recommended for 24 hour supervision until patient improving more. Patient denies fever, chills, nausea vomiting or diarrhea. Denies shortness of breath or chest pain. Denies cough at this time. Discharge discussed with: patient, family, nurse Time spent discussing smoking cessation with patient: 3 to 10 minutes - Time Spent with Patient Total time spent providing and/or coordinating discharge services: Time spent: Less than 30 minutes - Discharge Medications Prescriptions: No Action Atorvastatin [Lipitor] 40 mg PO HS Aspirin 325 mg PO DAILY Metoprolol [Lopressor] 50 mg PO DAILY Home Medications: Atorvastatin [Lipitor] 40 mg PO HS 12/10/16 [History] Aspirin 325 mg PO DAILY 04/10/18 [History] Metoprolol [Lopressor] 50 mg PO DAILY 04/10/18 [History] Doxycycline 100 mg PO BID 7 Days #14 capsule 05/24/19 [Rx] GuaiFENesin Liq [Robitussin Liq] 200 mg PO Q6HR PRN udc 05/24/19 [Rx] Ipratropium/Albuterol Neb [Duoneb] 3 ml IH Q6H inhsol 05/24/19 [Rx] Allergies/Adverse Reactions: Allergy/AdvReac Type Severity Reaction Status Date / Time heparin Allergy See Verified 05/20/19 20:36 Comments morphine Allergy See Verified 05/20/19 20:36 Comments rabeprazole [From Aciphex] Allergy See Verified 05/20/19 20:36 Comments Sulfa (Sulfonamide Allergy See Verified 05/20/19 20:36 Antibiotics) Comments Date of admission: 05/20/19 23:11 Primary care physician: Iron Bliss CNP Discharging clinician: Triston Pack Anticipated date of discharge: 05/24/19 - Constitutional Vitals: Temp Pulse Resp BP Pulse Ox 97.9 F 80 18 168/79 91 05/24/19 06:54 05/24/19 11:24 05/24/19 08:55 05/24/19 06:54 05/24/19 11:24 General appearance: Present: cooperative, A&O X 3, pleasant, no acute distress, answers questions appropriately - Head Head exam: Present: atraumatic, normocephalic - Eye Eye exam: Present: PERRL, conjuntiva pink, sclera anicteric Pupils: Present: PERRL - Neck Neck exam general surgery: Present: supple, trachea midline. Absent: lymphadenopathy - Respiratory Respiratory exam: Present: CTAB. Absent: accessory muscle use, rales, rhonchi, wheezes Additional comments: Diminished throughout - Cardiovascular Cardiovascular exam: Present: RRR, +S1, +S2. Absent: diastolic murmur, gallop, rubs, systolic murmur - GI/Abdominal GI/Abdominal exam: Present: normal bowel sounds, soft, no peritoneal signs. Absent: distended, tenderness - Extremities Exam Extremities exam: Present: warm, radial pulses palpable and symmetrical. Absent: calf tenderness, cyanotic, pedal edema - Neurological Exam Neurological exam: Present: CN II-XII intact, oriented X3, no focal deficits. Absent: pronater drift, facial droop, speech deficit - Skin Skin exam: Present: dry, intact - Patient Status Disposition: Home, Self-Care Condition: Fair Functional capacity at discharge: independent ambulation Overall status at discharge: patient is progressing back to baseline - Discharge Instructions Follow Up With: Iron Bliss, [employer] [Primary Care Provider] - - Diet and Activity Activity: increase activity as tolerated Diet: advance to your usual diet
[2019-05-24 11:54] VITALS: BP 136/68
== END 2019-05-24 16:13 | disposition home or self-care (01) | DRG 193 ==
LOC: EMEROOGRE 20:16 → INPGRE 23:11
PROVIDERS: ADMIT Internal Medicine; ATTEND Internal Medicine